=== PATIENT | female | born 1985 | race Caucasian/White ===

== ENCOUNTER → 2016-06-20 13:42 | Outpatient (CLI) | payer BC ==
[2011-09-05 06:24] VITALS: BMI 26.6
[2016-06-20 14:28] LABS: BASOPHILS 0.7 % (0-2); EOSINOPHILS 1.2 % (0-7); HEMATOCRIT 41.9 % (36.0-48.0); IMMATURE GRANULOCYTES 0.1 % (0-5); LYMPHOCYTES 27.8 % (15-50); MCH 31.6 pg (26.0-34.0); MCHC 33.4 g/dL (31.0-37.0); MCV 94.6 fL (80.0-100.0); MEAN PLATELET VOLUME 10.8 fL (7.4-10.4); MONOCYTES 7.3 % (2-11); NEUTROPHILS 62.9 % (40-80); PLATELET COUNT 281 10x3/uL (130-400); RBC 4.43 10x6/uL (4.00-5.40); RDW 12.7 % (11.5-14.5); WBC 8.8 10x3/uL (4.8-10.8)
[2016-06-20 14:34] LABS: APPEARANCE CLEAR (CLEAR); BILIRUBIN NEGATIVE (NEGATIVE); COLOR YELLOW (YELLOW); GLUCOSE NEGATIVE (NEGATIVE); KETONE NEGATIVE (NEGATIVE); LEUKOCYTE ESTERASE NEGATIVE (NEGATIVE); NITRITE NEGATIVE (NEGATIVE); PROTEIN TRACE mg/dL (NEGATIVE); UROBILINOGEN NORMAL (NORMAL)
[2016-06-20 14:36] LABS: BACTERIA FEW /hpf (NONE SEEN); CREATININE - URINE 81.8 mg/dL (30-125); EPITHELIAL CELLS 0-5 /hpf (0-5); MUCUS <1+ /lpf (NONE SEEN); PROTEIN - URINE 30.7 mg/dL (0.0-11.9); RED CELLS - URINE 0-5 /hpf (0-5); WHITE CELLS - URINE 0-5 /hpf (0-5)
[2016-06-20 14:47] LABS: ALBUMIN 3.8 g/dL (3.4-5.0); C-REACTIVE PROTEIN 0.7 mg/dL (0.0-0.9)
[2016-06-20 14:48] LABS: COMPLEMENT C4 20.4 mg/dL (17.4-52.2)
[2016-06-20 15:31] LABS: ERYTHROCYTE SEDIMENTATION RATE 30 mm/hr (0-20)
== END | disposition home or self-care (01) ==
LOC: D.LAB 13:42
PROVIDERS: Internal Medicine Rheumatology
DX: M32.8 Other forms of systemic lupus erythematosus (principal)

== ENCOUNTER → 2016-12-19 13:50 | Outpatient (CLI) | payer BC ==
[2011-09-05 06:24] VITALS: BMI 26.6
[2016-12-19 14:22] LABS: BASOPHILS 0.6 % (0-2); EOSINOPHILS 1.5 % (0-7); HEMATOCRIT 40.9 % (36.0-48.0); HEMOGLOBIN 13.6 g/dL (12-16); IMMATURE GRANULOCYTES 0.1 % (0-5); LYMPHOCYTES 31.8 % (15-50); MCH 31.3 pg (26.0-34.0); MCHC 33.3 g/dL (31.0-37.0); MEAN PLATELET VOLUME 10.3 fL (7.4-10.4); MONOCYTES 8.5 % (2-11); NEUTROPHILS 57.5 % (40-80); PLATELET COUNT 281 10x3/uL (130-400); RBC 4.35 10x6/uL (4.00-5.40); RDW 12.6 % (11.5-14.5); WBC 6.9 10x3/uL (4.8-10.8)
[2016-12-19 14:23] LABS: CREATININE - URINE 32.3 mg/dL (30-125)
[2016-12-19 14:27] LABS: APPEARANCE CLEAR (CLEAR); BILIRUBIN NEGATIVE (NEGATIVE); COLOR STRAW (YELLOW); GLUCOSE NEGATIVE (NEGATIVE); KETONE NEGATIVE (NEGATIVE); NITRITE NEGATIVE (NEGATIVE); PROTEIN NEGATIVE (NEGATIVE); UROBILINOGEN NORMAL (NORMAL)
[2016-12-19 14:28] LABS: BACTERIA FEW /hpf (NONE SEEN); EPITHELIAL CELLS OCC /hpf (0-5); RED CELLS - URINE 0-5 /hpf (0-5); WHITE CELLS - URINE OCC /hpf (0-5)
[2016-12-19 14:49] LABS: ALBUMIN 3.9 g/dL (3.4-5.0); CREATININE - SERUM 0.9 mg/dL (0.6-1.3)
[2016-12-19 14:50] LABS: C-REACTIVE PROTEIN 0.2 mg/dL (0.0-0.9)
[2016-12-19 14:56] LABS: COMPLEMENT C4 18.5 mg/dL (17.4-52.2)
[2016-12-19 15:26] LABS: ERYTHROCYTE SEDIMENTATION RATE 16 mm/hr (0-20)
== END | disposition home or self-care (01) ==
LOC: D.LAB 13:50
PROVIDERS: Internal Medicine Rheumatology
DX: M32.8 Other forms of systemic lupus erythematosus (principal)

== ENCOUNTER → 2017-12-02 16:39 | Outpatient (CLI) | payer BC ==
[2011-09-05 06:24] VITALS: BMI 26.6
[2017-12-02 17:33] LABS: T4 THYROXIN - FREE 0.93 ng/dL (0.76-1.46); THYROID STIMULATING HORMONE 0.98 uIU/mL (0.36-3.74)
[2017-12-04 07:28] LABS: PROLACTIN 15.6 ng/mL (4.8-23.3)
== END | disposition home or self-care (01) ==
LOC: D.LAB 16:39
PROVIDERS: Obstetrics & Gynecology
DX: N93.9 Abnormal uterine and vaginal bleeding, unspecified (principal)

== ENCOUNTER → 2018-01-11 11:44 | Outpatient (CLI) | payer BC ==
[2011-09-05 06:24] VITALS: BMI 26.6
[2018-01-11 12:13] LABS: BASOPHILS 1.3 % (0-2); EOSINOPHILS 4.3 % (0-7); HEMATOCRIT 42.3 % (36.0-48.0); HEMOGLOBIN 13.9 g/dL (12-16); IMMATURE GRANULOCYTES 0.1 % (0-5); LYMPHOCYTES 20.2 % (15-50); MCH 30.9 pg (26.0-34.0); MCHC 32.9 g/dL (31.0-37.0); MEAN PLATELET VOLUME 10.4 fL (7.4-10.4); MONOCYTES 14.1 % (2-11); PLATELET COUNT 259 10x3/uL (130-400); RDW 12.7 % (11.5-14.5); WBC 6.7 10x3/uL (4.8-10.8)
[2018-01-11 12:38] LABS: ALT (SGPT) 19 U/L (10-68); C-REACTIVE PROTEIN < 0.2 mg/dL (0.0-0.9); CREATININE - SERUM 0.8 mg/dL (0.6-1.3); UREA NITROGEN 10 mg/dL (7-18)
[2018-01-11 12:50] LABS: CREATININE - URINE 157.6 mg/dL (30-125); PRO/CRE RATIO URINE 0.2 mg/g; PROTEIN - URINE 30.5 mg/dL (0.0-11.9)
[2018-01-11 13:13] LABS: AMORPHOUS SEDIMENT <1+ /lpf (NONE SEEN); APPEARANCE HAZY (CLEAR); BACTERIA MODERATE /hpf (NONE SEEN); BILIRUBIN NEGATIVE (NEGATIVE); COLOR YELLOW (YELLOW); EPITHELIAL CELLS 0-5 /hpf (0-5); GLUCOSE NEGATIVE (NEGATIVE); KETONE NEGATIVE (NEGATIVE); MUCUS <1+ /lpf (NONE SEEN); NITRITE NEGATIVE (NEGATIVE); PROTEIN 1+ mg/dL (NEGATIVE); RED CELLS - URINE OCC /hpf (0-5); UROBILINOGEN NORMAL (NORMAL); WHITE CELLS - URINE RARE /hpf (0-5)
[2018-01-11 14:20] LABS: ERYTHROCYTE SEDIMENTATION RATE 11 mm/hr (0-20)
== END | disposition home or self-care (01) ==
LOC: D.LAB 11:44
PROVIDERS: Internal Medicine Rheumatology
DX: M32.8 Other forms of systemic lupus erythematosus (principal)

== ENCOUNTER → 2019-06-03 10:44 | Outpatient (CLI) | payer BC ==
[2011-09-05 06:24] VITALS: BMI 26.6
[2019-06-03 11:40] LABS: BASOPHILS 0.6 % (0-2); EOSINOPHILS 1.4 % (0-7); HEMATOCRIT 47.5 % (36.0-48.0); HEMOGLOBIN 15.3 g/dL (12-16); IMMATURE GRANULOCYTES 0.3 % (0-5); LYMPHOCYTES 27.6 % (15-50); MCH 30.8 pg (26.0-34.0); MCHC 32.2 g/dL (31.0-37.0); MCV 95.8 fL (80.0-100.0); MEAN PLATELET VOLUME 10.4 fL (7.4-10.4); MONOCYTES 11.4 % (2-11); NEUTROPHILS 58.7 % (40-80); PLATELET COUNT 232 10x3/uL (130-400); RBC 4.96 10x6/uL (4.00-5.40); WBC 7.2 10x3/uL (4.8-10.8)
[2019-06-03 12:17] LABS: CREATININE - URINE 16.6 mg/dL (30-125)
[2019-06-03 12:21] LABS: PRO/CRE RATIO URINE 0.3 mg/g; PROTEIN - URINE 4.4 mg/dL (0.0-11.9)
[2019-06-03 12:46] LABS: ERYTHROCYTE SEDIMENTATION RATE 18 mm/hr (0-20)
[2019-06-03 12:49] LABS: COMPLEMENT C4 27.3 mg/dL (17.4-52.2)
[2019-06-03 12:54] LABS: BILIRUBIN NEGATIVE (NEGATIVE); GLUCOSE NEGATIVE (NEGATIVE); KETONE NEGATIVE (NEGATIVE); NITRITE NEGATIVE (NEGATIVE); UROBILINOGEN NORMAL (NORMAL)
[2019-06-03 12:55] LABS: ALBUMIN 3.7 g/dL (3.4-5.0); C-REACTIVE PROTEIN 3.1 mg/dL (0.0-0.9); CREATININE - SERUM 0.7 mg/dL (0.6-1.3)
[2019-06-06 09:08] LABS: ANA REFLEX - DBL STRANDED DNA 3 IU/mL (0-9); ANA REFLEX - DIRECT Negative (Negative)
== END | disposition home or self-care (01) ==
LOC: D.LAB 10:44
PROVIDERS: ATTEND Internal Medicine Rheumatology
DX: M32.8 Other forms of systemic lupus erythematosus (principal)

== ENCOUNTER → 2019-09-05 15:12 | Outpatient (CLI) | payer BC ==
[2011-09-05 06:24] VITALS: BMI 26.6
[2019-09-05 16:55] LABS: ERYTHROCYTE SEDIMENTATION RATE 10 mm/hr (0-20)
== END | disposition home or self-care (01) ==
LOC: D.LAB 15:12
PROVIDERS: ATTEND Internal Medicine Rheumatology
DX: M32.8 Other forms of systemic lupus erythematosus (principal)

== ENCOUNTER 2020-05-28 17:52 | Outpatient (CLI) | payer BC ==
[2011-09-05 06:24] VITALS: BMI 26.6
== END 2020-05-28 23:59 | disposition home or self-care (01) ==
LOC: D.MAMMO 17:52
PROVIDERS: ATTEND Family Medicine
DX: Z12.31 Encounter for screening mammogram for malignant neoplasm of breast (principal)